=== PATIENT | male | born 1980 | race Caucasian/White ===

== ENCOUNTER 2017-02-25 09:50 | Emergency (ER) | payer BC ==
[~2017-02-25] VITALS: Ht 180.3 cm; Wt 158.8 kg
--- NOTE | ~2017-02-25 | EKG ---
PATIENT: BRIANNE MCKEON UNIT #: [id number] Ventricular Rate: 103 BPM Atrial Rate: 103 BPM P-R Interval: 196 ms QRS Duration: 102 ms Q-T Interval: 312 ms QTC Calculation(Bezet): 408 ms P Preemption: 34 degrees Calculated R Preemption: 53 degrees Calculated T Preemption: 23 degrees Diagnosis Line: Sinus tachycardia Diagnosis Line: Otherwise normal ECG Diagnosis Line: When compared with ECG of 22-AUG-2011 06:42, Diagnosis Line: QT has shortened Diagnosis Line: Confirmed by NAMAN HAYES MD ([id number]) on 02/25/2017 Diagnosis Line: 6:03:57 PM INTERPRETING MD: FREDDY DONALD
--- NOTE | ~2017-02-25 | CO ---
Unit #: [id number] #: [id number] Patient: BRIANNE PAN [id number] [facility] [address] [place], [place] [address] [id number] MR#: [id number] NAME: BRIANNE PAN ROOM: Age: 36 Sex: M Admission Date: 02/25/2017 : 1980 Attending Physician: Liss Low M.D. Primary Care Physician: Tripp Bailey M.D. CONSULTATION REPORT JOB NOTE: VERIFY REFERRING PHYSICIAN. REASON FOR CONSULTATION REQUEST SVT. HISTORY OF PRESENT ILLNESS Mr. Pan is a pleasant 36-year-old, male, seen in room T2 at the emergency room at [facility]. 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 He was performing a normal task, lifting the legs of the stretcher on a patient, when he started to notice that his "heart was in his throat." He did not necessarily develop chest pain, but felt a fullness. He felt "restricted" breathing, but was not typically short of breath. He was brought into the emergency room in a wheelchair, hooked up, and a rhythm strip was obtained, which showed a heart rate in the 180 range. A few seconds after the rhythm strip was obtained, he cardioverted. An ECG immediately after self cardioversion showed a QTc of 408 milliseconds, ventricular rate of 103, and no ST-segment changes. He has not experienced any other SVT episodes. He has had no PND, orthopnea, syncope, or presyncope. He is treated by Dr. Bailey at [facility] for hypertension, has borderline dyslipidemia in his family, and has no history of diabetes. He has a history of testicular cancer, treated with appropriate medications, after radiation and chemotherapy were given for the testicular cancer. He has a CPAP, and was investigated up near [place] years ago, but has not had the CPAP re-evaluated in many years. He underwent an echocardiogram in 2011. This showed significant LVH of 1.6 cm, and RV moderately dilated. This is abnormal for a patient of 30 years old in 2011. He takes no illicit drugs, stopped smoking in 2014, two glasses of alcohol yesterday afternoon. He only slept 4 hours last evening, and ate a normal lunch, but has not taken in many fluids today. ALLERGIES Aprepitant and fosaprepitant. PAST SURGICAL HISTORY Unit #: [id number] #: [id number] Patient: BRIANNE PAN Tonsillectomy, testicular cancer surgery. PAST MEDICAL HISTORY Testicular cancer, secondary parathyroid disease, hypertension, GI issues, sleep apnea. FAMILY HISTORY Positive for dyslipidemia. Negative for premature atherosclerotic disease. SOCIAL HISTORY He took alcohol last yesterday on 02/24/2017 in the afternoon, 2 cups of wine. He stopped smoking tobacco in 2014. He takes no illicit drugs. Works as an EMT. He has a child, approximately 1-year-old. REVIEW OF SYSTEMS Otherwise negative review of systems except as stated above, 12-point review of systems. MEDICATIONS Lotrel and testosterone. PHYSICAL EXAMINATION GENERAL: Pleasant, alert, in no acute distress. VITAL SIGNS: Heart rate is 100 and regular, respiratory rate is 16. Blood pressure is 137/102. Height is 5 feet 11 inches, weight 250 pounds, BMI is 48. SKIN: Warm and dry. No xanthelasma. MUSCULOSKELETAL: No missing digits. Moves easily for evaluation. NEUROLOGICAL: Appropriate mood and affect. Alert and oriented x3. HEENT: Pupils equal, round and reactive. No oral cyanosis. No icterus. NECK: Carotids clear to auscultation with no carotid bruits. Normal carotid upstroke bilaterally. Thyroid is normal in size and texture without masses or tenderness. CHEST: Clear to auscultation with no rales or wheezes. Good effort. CARDIAC: Normal point of maximum impulse. Normal S1 and S2. No S3, S4 or rub. ABDOMEN: No hepatosplenomegaly, masses or tenderness. Normal bowel sounds. No abdominal bruits heard. EXTREMITIES: No clubbing, cyanosis or edema. Excellent posterior tibial and dorsalis pedis pulses. DIAGNOSTIC STUDIES IMAGING STUDIES: ECG is as noted above. LABORATORY RESULTS: Creatinine 0.8, potassium 3.4, HDL 32 back in 2011. Hemoglobin is 15.7 currently. Urinalysis is negative. IMPRESSION 1. Supraventricular tachycardia, likely related to combination of several issues; he is a little bit dehydrated, relatively, on the lower end of his sleeping, only 4 hours last night, although he did take a nap, and his CPAP; although it seems to be working fairly well, has not been adjusted in many years. I do not think the alcohol yesterday is a factor. It was minimal, and many hours prior to this episode. Because it was very symptomatic, I do not think we need to place the Holter. He will be able to tell us if he has recurrent episodes. I do not think any long-term medications are necessary for this. 2. Sleep apnea: He uses a CPAP, but the last adjustment was years ago. Unit #: [id number] #: [id number] Patient: BRIANNE PAN I am recommending a repeat study and adjustment. His weight is about the same as it was years ago. 3. Morbid obesity. BMI is very high. He states that every doctor has reminded him of this. 4. Family history of hypertriglyceridemia, but not premature atherosclerotic disease. 5. Tobacco abuse, stopped in 2014. Needs abdominal aortic aneurysm scan at approximately age 56. 6. Hypertension: This, in combination with hypokalemia would suggest an element of hyperaldosteronism. We will add spironolactone 25 mg daily. 7. No history of dyslipidemia, but in the presence of hypertension, I would recommend Lipitor 10 mg daily. 8. Likely prediabetic, based on risk factor profile. 9. Abnormal echo in 2011 with significant LVH of 1.6 cm, and RV dilatation. We will recheck an echo today. RECOMMENDATIONS 1. Check an echo. 2. His color finisher whom he sees soon and sees on a regular basis will follow TSH. 3. Weight loss strongly recommended. 4. Lipitor given for hypertension. 5. Spironolactone started. Thank you very much for this consultation. I will see him in the office on an as-needed basis, unless the echo is significantly abnormal. I have advised him to call us within about a week for the echo results if we have not called him. Based on the prior echo, the LVH suggested his hypertension which may look good in the office is not being adequately controlled over 24 hours. Dictated by... Keo Cantu M.D. CHRISTI/felicita TD: 02/26/2017 03:43 JOB #: [id number] CC: Tripp Bailey M.D. CONSULTATION REPORT Page 1 of 1 X Keo Cantu MD CONSULTATION REPORT
--- NOTE | ~2017-02-25 | CR72 ---
[facility] A Service of [facility] & [facility] RADIOLOGY TEXT RESULTS PATIENT: BRIANNE MCKEON LOCATION: [facility] : [birth year] UNIT #: [id number] AGE: [address]: Liss Low MD SEX: M ORDER DR: [id number] [facility] [address] [place], [place] [address] [id number] MR#: [id number] Acc #: [id number] NAME: BRIANNE MCKEON : 1980 SEX: M STUDY DATE/TIME: 02/25/2017 10:19 UNIT: [facility] ROOM: STUDY DESCRIPTION: CR Chest Single View Portable Attending Physician: Liss Low M.D. Ordering Physician: Liss Low M.D. Primary Care Physician: Tripp Bailey M.D. MEDICAL IMAGING REPORT This report is preliminary unless electronic signature is present EXAM Portable chest INDICATION Rapid heartbeat dizziness, shortness of air today. COMPARISON 09/19/2011 FINDINGS A portable view of the chest was obtained. The heart size and vascularity are normal and the lungs are clear. There seems to be mild scoliosis. IMPRESSION No active disease. Dictated by... Freddy Bonner M.D. THIS IS AN ELECTRONICALLY VERIFIED REPORT Freddy Bonner M.D. at 02/25/2017 1:43 PM Angelito TD: 02/25/2017 12:54 JOB #: [id number] MEDICAL IMAGING REPORT Page 1 of 1 COPY
[~2017-02-25 09:50] MED LIST: ASPIRIN81 M1 PO; FAMOTIDINE PO; XYZAL5 MG PO; ZYRTEC10 M2 PO
[2017-02-25 10:22] LABS: BASOPHIL# 0.1 X10e3 (0-0.3); BASOPHIL% 0.5 % (0-2.5); EOSINOPHIL# 0.8 X10e3 (0-0.7); EOSINOPHIL% 7.4 % (0.0-7.0); HEMATOCRIT 45.9 % (38.0-50.0); HEMOGLOBIN 15.7 gm/dL (13.0-16.0); LYMPHOCYTE# 1.9 X10e3 (1.0-3.5); LYMPHOCYTE% 18.8 % (17.0-45.0); MEAN CELL VOLUME 84.2 FL (83-96); MEAN CORPUSCULAR HEMOGLOBIN 28.8 PG (28-34); MEAN CORPUSCULAR HGB CONC 34.2 g/dL (30-36); MEAN PLATELET VOLUME 8.1 FL (6.5-11.5); MONOCYTE# 0.7 X10e3 (0-1.0); MONOCYTE% 6.9 % (3.0-12.0); NEUTROPHIL# 6.9 X10e3 (1.5-7.1); NEUTROPHIL% 66.4 % (40-75); PLATELET COUNT 200 X10e3 (140-420); RED BLOOD COUNT 5.46 X10e (3.90-5.60); RED CELL DISTRIBUTION WIDTH 14.3 % (11.0-15.5); WHITE BLOOD COUNT 10.3 X10e3 (4.0-10.5)
[2017-02-25 10:26] LABS: DIFF IND NO
[2017-02-25 10:29] LABS: POC - CKMB 1.4 ng/mL (0.0-7.9); POC - TROPONIN <0.05 ng/mL (<=0.05)
[2017-02-25 10:35] LABS: PARTIAL THROMBOPLASTIN TIME 29.2 SECONDS (23.5-31.3); PROTHROMBIN TIME (PATIENT) 10.7 SECONDS (10.0-11.7)
[2017-02-25 10:44] LABS: ALBUMIN SERUM 4.2 g/dL (3.5-5.0); BILIRUBIN, DIRECT 0.1 mg/dL (0.0-0.2); BILIRUBIN,INDIRECT 0.3 mg/dL (0.0-0.9); BILIRUBIN,TOTAL 0.4 mg/dL (0.2-2.0); BUN/CREATININE RATIO 13.75; CALCIUM SERUM 8.8 mg/dL (8.4-10.2); CREATININE SERUM 0.8 mg/dL (0.6-1.4); GLOM FILT RATE Estimated 115.8 mL/min (>60); POTASSIUM 3.4 mmol/L (3.5-5.1); PROTEIN TOTAL SERUM 6.9 g/dL (6.0-8.3)
[2017-02-25 11:08] LABS: URINE SOURCE CLEAN CATCH
[2017-02-25 11:20] LABS: URINE APPEARANCE CLEAR; URINE BILIRUBIN NEG (NEG); URINE BLOOD NEG (NEG); URINE COLOR YELLOW; URINE GLUCOSE NEG (NEG); URINE KETONE NEG (NEG); URINE LEUKOCYTE ESTERASE NEG (NEG); URINE NITRATE NEG (NEG); URINE PROTEIN NEG (NEG); URINE SPECIFIC GRAVITY 1.016 (1.003-1.035); URINE UROBILINOGEN 0.2 MG/DL (NEG)
[2017-02-25 11:35] LABS: CULTURE INDICATED? NO
[2017-02-25 11:48] LABS: POC - CKMB 1.3 ng/mL (0.0-7.9); POC - TROPONIN <0.05 ng/mL (<=0.05)
== END 2017-02-25 14:26 | disposition home or self-care (01) ==
LOC: CED 09:50
PROVIDERS: Emergency Medicine
DX: I47.1 Supraventricular tachycardia (principal); I10 Essential (primary) hypertension; Z88.8 Allergy status to other drugs, medicaments and biological substances
CPT/HCPCS: 36415; 71010; 80048; 80076; 81003; 82553; 83880; 84443; 84484; 85025; 85610; 85730; 93005; 93306; 99285; J0153